=== PATIENT | male | born 1945 | race Caucasian/White ===

== ENCOUNTER 2019-08-27 12:29 | Day surgery (SDC) | payer OTHER, SELFPAY ==
[2019-08-27 13:13] VITALS: BMI 26.6
[2019-08-27] MEDS: SODIUM CHLORIDE 0.9% 1,000 ML 200 ML IV (13:18)
--- NOTE | 2019-08-27 13:19 | PM.HP.1 ---
History of Present Illness History of Present Illness Date Patient Seen: 08/27/19 Time Patient Seen: 13:19 Chief complaint: [id number] SCREENING COLONOSCOPY Narrative: Asymptomatic patient here for screening colonoscopy he has had a previous colonoscopy with no polyps Patient History Family & Social History Social History: household members spouse Meds Home Medications and Allergies Home Medications Medication Instructions Recorded Confirmed Type atorvastatin 10 mg PO BEDTIME 08/27/19 08/27/19 History colchicine 0.6 mg PO DAILY 08/27/19 08/27/19 History lisinopril 40 mg PO DAILY 08/27/19 08/27/19 History Allergies Allergy/AdvReac Type Severity Reaction Status Date / Time No Known Drug Allergies Allergy Verified 08/27/19 13:18 Review of Systems Review of Systems ROS Unobtainable: All systems reviewed & are unremarkable except as noted in HPI and below Exam Narrative Exam Narrative: Patient is resting comfortably in bed alert and oriented Lungs clear with no rales or wheezes Heart regular rhythm no murmur Abdomen soft no organomegaly no tenderness Rectal be done at colonoscopy Assessment & Plan Assessment & Plan narrative: Patient here for screening colonoscopy no history of polyps. He has no questions about the procedure.
[2019-08-27] MEDS: MIDAZOLAM 5 MG/5 ML VIAL IV (13:26)
[2019-08-27] MEDS: fentaNYL 250 MCG/5 ML INJ IV (13:27)
--- NOTE | 2019-08-27 13:41 | PM.OP.ENDO ---
Operative Date/Time/Diagnoses Date of procedure: 08/27/19 Time of procedure: 13:41 Pre-op diagnosis: Screening colonoscopy Post-op diagnosis: same Procedure & Clinicians Study performed: Total colonoscopy to the cecum Same procedure as scheduled: Yes Surgeon: Clif Xiao Procedure Notes SCOAP/Timeout: Was done Procedure in detail: The patient was properly identified during surgical pause was given a total of 2 mg of Versed and 100 micro g of fentanyl and remained very comfortable throughout the procedure. The flexible fiberoptic colonoscope was inserted transanally to the cecum. Patient's colon is entirely normal. No polyps no tumors no diverticulosis is seen. Procedure was very well tolerated. Scope withdrawal time: 8 Sedation minutes: 15 Specimen(s): none sent Complications: none Post-procedure Recommendations: Colonscopy in 10 years Disposition: PACU
[2019-08-27 13:46] VITALS: BP 94/65; PULSE 74; RESP 13; TEMP 36.4; O2SAT 97
[2019-08-27 13:51] VITALS: BP 94/67; PULSE 81; RESP 23; O2SAT 96
[2019-08-27 13:56] VITALS: BP 96/67; PULSE 67; RESP 15; TEMP 36.4; O2SAT 98
[2019-08-27 14:01] VITALS: BP 94/67; PULSE 64; RESP 20; O2SAT 95
[2019-08-27 14:15] VITALS: BP 101/68; PULSE 66; RESP 17; TEMP 36.6; O2SAT 97
== END 2019-08-27 14:37 | disposition home or self-care (01) ==
PROVIDERS: Family Provider Family Medicine Geriatric Medicine; PCP Family Medicine Geriatric Medicine; Visit Provider Surgery
PROC: 0DJD8ZZ Inspection of Lower Intestinal Tract, Via Natural or Artificial Opening Endoscopic (ICD-10-PCS; CPT 45378; principal; 2019-08-27 13:45)
DX: Z12.11 Encounter for screening for malignant neoplasm of colon (principal)
CPT/HCPCS: 45378; 99152; J2250; J3010

== ENCOUNTER → 2021-03-09 09:54 | Outpatient (CLI) | payer MEDICARE, OTHER, SELFPAY ==
[2021-03-09 10:58] LABS: Alanine Aminotransferase 26 IU/L (<50); Albumin 4.3 g/dL (3.5-5.0); Albumin Globulin Ratio 1.7 (1.0-2.8); Alkaline Phosphatase 74 U/L (38-126); Aspartate Aminotransferase 32 IU/L (17-59); BUN Creatinine Ratio 17.7 (6-22); Bilirubin Total 0.9 mg/dL (0.2-1.3); Blood Urea Nitrogen 22 mg/dL (9-20); Calcium 9.9 mg/dL (8.4-10.2); Carbon Dioxide 24 mmol/L (22-32); Chloride 106 mmol/L (98-107); Cholesterol 192 mg/dL (140-199); Globulin 2.6 g/dL (1.7-4.1); Glucose 93 mg/dL (80-110); HDL Cholesterol 41 mg/dL (40-60); HEMOLYSIS < 15 (0-50); LDL Cholesterol Calculated 102 mg/dL (<100); Potassium 4.6 mmol/L (3.4-5.1); Sodium 138 mmol/L (137-145); Total Protein 6.9 g/dL (6.3-8.2); Triglycerides 246 mg/dL (35-150)
== END ==
PROVIDERS: Family Provider Family Medicine Geriatric Medicine; PCP Internal Medicine; Referring Provider Internal Medicine; Visit Provider Internal Medicine
DX: E78.5 Hyperlipidemia, unspecified (principal)
CPT/HCPCS: 36415; 80053; 80061

== ENCOUNTER 2021-11-13 15:34 | Observation (INO) | payer MEDICARE, OTHER, SELFPAY ==
[2021-11-13] VITALS (14 sets, daily range): BP systolic 143–167; BP diastolic 70–82; PULSE 58–75; RESP 16–27; TEMP 36.4–37.1; O2SAT 93–99; BMI 26.6
--- NOTE | 2021-11-13 15:40 | DI.RAD.S_ITS ---
PROCEDURE: XR CHEST 1V INDICATIONS: chest pain TECHNIQUE: One view of the chest was acquired. COMPARISON: None. FINDINGS: Surgical changes and devices: None. Lungs and pleura: Mild pulmonary vascular congestion is seen. No focal infiltrate. No pleural effusions or pneumothorax. Mediastinum: Mediastinal contours appear normal. Heart size is enlarged. Bones and chest wall: No suspicious bony lesions. Overlying soft tissues appear unremarkable. IMPRESSION: Mild congestion. No focal infiltrate, pleural effusion or pneumothorax. Dictated by: Gus Recinos M.D. on 11/13/2021 at 16:13 Approved by: Gus Rceinos M.D. on 11/13/2021 at 16:17
[2021-11-13 16:08] LABS: Add Manual Diff / Slide Review NO; Basophils Absolute Auto 0 /uL (0-100); Basophils Percent Auto 0.6 % (0-2); Eosinophils Absolute Auto 100 /uL (0-450); Eosinophils Percent Auto 1.3 % (2-4); Hematocrit 43.3 % (41-53); Lymphocytes Absolute Auto 2000 /uL (1100-4500); Lymphocytes Percent Auto 32.9 % (25-40); Mean Corpuscular HGB Conc 34.6 % (30-36); Mean Corpuscular Hemoglobin 32.1 PG (26-34); Mean Corpuscular Volume 92.7 fL (80-100); Monocytes Absolute Auto 400 /uL (0-900); Monocytes Percent Auto 6.8 % (3-14); Neutrophils Absolute Auto 3500 /uL (1500-7000); Neutrophils Percent Auto 58.4 % (50-75); Platelet Count 199 X10^3/uL (150-400); Red Blood Cell Count 4.67 X10^6/uL (4.5-5.9); Red Cell Distribution Width 12.1 % (11.6-14.8)
[2021-11-13 16:12] LABS: Prothrombin Time 10.8 SECONDS (10.1-12.7)
[2021-11-13 16:15] LABS: PTT Partial Thromboplastin Tim 32 SECONDS (26.4-36.2)
[2021-11-13 16:23] LABS: Alanine Aminotransferase 24 IU/L (<50); Albumin 4.5 g/dL (3.5-5.0); Albumin Globulin Ratio 1.6 (1.0-2.8); Alkaline Phosphatase 58 U/L (38-126); Aspartate Aminotransferase 29 IU/L (17-59); BUN Creatinine Ratio 17.5 (6-22); Bilirubin Total 0.7 mg/dL (0.2-1.3); Blood Urea Nitrogen 24 mg/dL (9-20); Calcium 9.5 mg/dL (8.4-10.2); Carbon Dioxide 29 mmol/L (22-32); Chloride 105 mmol/L (98-107); Creatine Kinase 82 U/L (55-170); Estimated Glomerular Filt Rate 50.8 mL/min (>60); Globulin 2.8 g/dL (1.7-4.1); Glucose 108 mg/dL (80-110); HEMOLYSIS < 15 (0-50); Lipase 163 U/L (23-300); Potassium 4.2 mmol/L (3.4-5.1); Sodium 140 mmol/L (137-145); Total Protein 7.3 g/dL (6.3-8.2)
[2021-11-13 16:31] LABS: NT-proBNP (BNP-Adult 18+) 176 pg/mL (<125)
[2021-11-13 16:34] LABS: Troponin I < 0.012 ng/mL (0.01-0.034)
[2021-11-13] MEDS: ASPIRIN 81 MG CHEW TAB 324 MG PO (18:11)
[2021-11-13 18:33] LABS: COVID19 -Nasal RAPID Negative (Negative)
[2021-11-13 19:47] LABS: Troponin I < 0.012 ng/mL (0.01-0.034)
--- NOTE | 2021-11-13 20:20 | ED_ITS ---
HPI - Chest Pain General Chief Complaint: Chest Pain Stated Complaint: Chest Pains, Time Seen by Provider: 11/13/21 18:07 Source: patient Mode of arrival: Ambulatory Limitations: no limitations History of Present Illness HPI narrative: Patient is a 76-year-old male. Here for evaluation of left-sided chest pain. H e states that earlier today he was walking with his . This is not unusual. He states he walks quite a bit. Has never had chest pain before today. States he had 4 distinct episodes while he was walking of left-sided chest pain. Described as a sharp pain. Not made worse with palpation or movement. Did improve when he stopped. He was able to complete his walk. Has been asymptomatic since then. He did have a stress test back in 1998 but nothing since then. Does have a history of high blood pressure and high cholesterol and takes medications for this. Related Data Home Medications Medication Instructions Recorded Confirmed atorvastatin 10 mg tablet 5 mg PO BEDTIME 08/27/19 11/13/21 lisinopril 40 mg tablet 20 mg PO DAILY 08/27/19 11/13/21 Allergies Allergy/AdvReac Type Severity Reaction Status Date / Time No Known Drug Allergies Allergy Verified 08/27/19 13:18 Review of Systems Review of Systems ROS Unobtainable: All systems reviewed & are unremarkable except as noted in HPI and below Constitutional Constitutional: Denies fever(s) Cardiovascular Cardiovascular: Reports as per HPI, Reports system reviewed and no additional complaints, except as documented and Denies dyspnea Respiratory Respiratory: Denies cough and Denies dyspnea Gastrointestinal Gastrointestinal: Denies abdominal pain, Denies nausea and Denies vomiting Genitourinary Genitourinary: Reports system reviewed and no additional complaints, except as documented Integumentary/Breasts Skin/Breast: Reports system reviewed and no additional complaints, except as documented Neurologic Neurologic: Reports system reviewed and no additional complaints, except as documented Hematologic/Lymphatic On Anticoagulants: No Patient History Medical History Essential hypertension GERD (gastroesophageal reflux disease) Hyperlipidemia Hyperuricemia Social History household members: spouse Smoking Status: Former smoker alcohol intake: current Exam Initial Vital Signs Initial Vital Signs: Vital Signs Temperature 98.7 F 11/13/21 15:38 Pulse Rate 75 11/13/21 15:38 Respiratory Rate 22 11/13/21 15:38 Blood Pressure 167/77 H 11/13/21 15:38 Pulse Oximetry 99 11/13/21 15:38 HENMT Head: normal to inspection and normocephalic Chest Chest: normal inspection of the chest, No crepitus and No tenderness Resp Effort & Inspection: normal respiratory effort Auscultation: clear to auscultation bilaterally Cardio Rate: regular rate Rhythm: regular rhythm GI Inspection: normal to inspection Palpation: soft, No firm and No tender Skin General: no rashes or lesions noted Neuro General: patient alert, patient awake, patient oriented x3 and moves all extremities Speech: speech normal Gait: normal gait Extrem General: normal to inspection and capillary refill normal Psych Appearance: grossly normal and well kempt Scores GCS Chante coma scale eye opening: Spontaneous Chante coma scale verbal response: Orientated Aline coma scale motor response: Obey commands Aline coma scale total score: 15 HEART Score Heart Score history: Moderately Suspicious Heart Score EKG: Non-Specific repolarization disturbance Heart Score Age: > or = 65 years old Heart Score risk factors: 1-2 risk factors Heart Score troponin: < or = to normal limit Heart Score Total: 5 Course Orders Ordered: ED Orders 11/13/21 15:45 Complete Blood Count AUTO DIFF Stat Comprehensive Metabolic Panel Stat Lipase Stat Magnesium Stat NT-proBNP (BNP-Adult 18+) Stat Partial Thromboplastin Time Stat Prothrombin Time INR Stat Troponin & CK Cardiac Panel Stat EKG-12 Lead Stat 11/13/21 17:50 EKG-12 Lead Stat 11/13/21 18:00 COVID19 -Nasal swab/Pre-Proc Stat 11/13/21 19:10 Trop I [Troponin I] Stat Acetaminophen (Acetaminophen 325 Mg Tablet) 650 mg PO Q6HR PRN PRN Reason: Fever/Mild Pain (1-3) Aspirin (Aspirin Ec 81 Mg Tablet) 81 mg PO DAILY [facility] Atorvastatin Calcium (Atorvastatin 20 Mg Tablet) 40 mg PO BEDTIME [facility] Enoxaparin Sodium (Enoxaparin 40 Mg/0.4 Ml Syringe) 40 mg SUBCUT DAILY [facility] Losartan Potassium (Losartan 25 Mg Tablet) 25 mg PO DAILY [facility] Morphine Sulfate (Morphine 2 Mg/Ml Inj) 2 mg IV Q5MIN PRN PRN Reason: Chest Pain Morphine Sulfate (Morphine 2 Mg/Ml Inj) 2 mg IV Q4H PRN PRN Reason: Breakthrough pain only (8-10) Naloxone HCl (Naloxone 0.4 Mg/Ml Vial) 0.2 mg IV Q2MIN PRN PRN Reason: Opiate Reversal Nitroglycerin (Nitroglycerin 0.4 Mg Sl Tab) 0.4 mg SL [id number] PRN PRN Reason: Chest Pain Ondansetron HCl (Ondansetron 4 Mg/2 Ml Inj) 4 mg IV Q8HR PRN PRN Reason: Nausea And Vomiting Discontinued Medications Aspirin (Aspirin 81 Mg Chew Tab) 324 mg PO NOW ONE Stop: 11/13/21 15:41 Last Admin: 11/13/21 18:11 Dose: 324 mg Documented by: DOMENIC Nitroglycerin (Nitroglycerin 0.4 Mg Sl Tab) 0.4 mg SL [id number] PRN PRN Reason: Chest Pain Vital Signs Vital signs: Vital Signs - 8 hr 11/13/21 17:40 11/13/21 17:41 11/13/21 17:56 Temperature 97.6 F Pulse Rate 62 64 Respiratory Rate 25 H 24 Blood Pressure 162/77 H Pulse Oximetry 11/13/21 18:00 11/13/21 18:30 11/13/21 19:00 Temperature Pulse Rate 75 62 62 Respiratory Rate 24 24 22 Blood Pressure 143/81 H Pulse Oximetry 97 99 99 11/13/21 19:30 11/13/21 19:51 11/13/21 20:00 Temperature Pulse Rate 60 61 60 Respiratory Rate 24 27 H 25 H Blood Pressure 157/70 H Pulse Oximetry 99 93 99 11/13/21 20:01 11/13/21 20:30 11/13/21 21:00 Temperature Pulse Rate 62 61 58 L Respiratory Rate 24 23 23 Blood Pressure 154/82 H 160/77 H 162/78 H Pulse Oximetry 98 98 98 MDM - Chest Pain Lab Data Attestation: I reviewed the patient's lab results. Result diagrams: 11/13/21 15:45 11/13/21 15:45 Labs: Lab Results 11/13/21 11/13/21 11/13/21 Range/Units 15:35 15:45 15:45 WBC 6.0 (4.5-11.0) X10^3/uL RBC 4.67 (4.5-5.9) X10^6/uL Hgb 15.0 (13.5-17.5) g/dL Hct 43.3 (41-53) % MCV 92.7 (80-100) fL MCH 32.1 (26-34) PG MCHC 34.6 (30-36) % RDW 12.1 (11.6-14.8) % Plt Count 199 (150-400) X10^3/uL Neut % (Auto) 58.4 (50-75) % Lymph % (Auto) 32.9 (25-40) % [place] % (Auto) 6.8 (3-14) % Eos % (Auto) 1.3 L (2-4) % Baso % (Auto) 0.6 (0-2) % Neut # (Auto) 3500 (5004-7252) /uL Lymph # (Auto) 2000 (5722-5504) /uL [place] # (Auto) 400 (0-900) /uL Eos # (Auto) 100 (0-450) /uL Baso # (Auto) 0 (0-100) /uL PT (10.1-12.7) SECONDS INR (0.9-1.3) APTT (26.4-36.2) SECONDS Sodium 140 (137-145) mmol/L Potassium 4.2 (3.4-5.1) mmol/L Chloride 105 (98-107) mmol/L Carbon Dioxide 29 (22-32) mmol/L BUN 24 H (9-20) mg/dL Creatinine 1.37 H (0.66-1.25) mg/dL Estimated GFR 50.8 L (>60) mL/min BUN/Creatinine Ratio 17.5 (6-22) Glucose 108 (80-110) mg/dL Hemoglobin A1c (4.0-6.0) % Calcium 9.5 (8.4-10.2) mg/dL Magnesium 2.0 (1.6-2.3) mg/dL Total Bilirubin 0.7 (0.2-1.3) mg/dL AST 29 (17-59) IU/L ALT 24 (<50) IU/L Alkaline Phosphatase 58 (38-126) U/L Total Creatine Kinase 82 (55-170) U/L CK-MB (CK-2) TNP CK-MB (CK-2) Rel Index TNP Troponin I < 0.012 (0.01-0.034) ng/mL NT-Pro-B Natriuret Pep (<125) pg/mL Total Protein 7.3 (6.3-8.2) g/dL Albumin 4.5 (3.5-5.0) g/dL Globulin 2.8 (1.7-4.1) g/dL Albumin/Globulin Ratio 1.6 (1.0-2.8) Lipase 163 (23-300) U/L TSH 1.20 (0.47-4.68) uIU/mL SARS-CoV-2 (PCR) (Negative) 11/13/21 11/13/21 11/13/21 Range/Units 15:45 15:45 15:45 WBC (4.5-11.0) X10^3/uL RBC (4.5-5.9) X10^6/uL Hgb (13.5-17.5) g/dL Hct (41-53) % MCV (80-100) fL MCH (26-34) PG MCHC (30-36) % RDW (11.6-14.8) % Plt Count (150-400) X10^3/uL Neut % (Auto) (50-75) % Lymph % (Auto) (25-40) % [place] % (Auto) (3-14) % Eos % (Auto) (2-4) % Baso % (Auto) (0-2) % Neut # (Auto) (0507-9764) /uL Lymph # (Auto) (5409-1636) /uL [place] # (Auto) (0-900) /uL Eos # (Auto) (0-450) /uL Baso # (Auto) (0-100) /uL PT 10.8 (10.1-12.7) SECONDS INR 1.0 (0.9-1.3) APTT 32 (26.4-36.2) SECONDS Sodium (137-145) mmol/L Potassium (3.4-5.1) mmol/L Chloride (98-107) mmol/L Carbon Dioxide (22-32) mmol/L BUN (9-20) mg/dL Creatinine (0.66-1.25) mg/dL Estimated GFR (>60) mL/min BUN/Creatinine Ratio (6-22) Glucose (80-110) mg/dL Hemoglobin A1c 5.1 (4.0-6.0) % Calcium (8.4-10.2) mg/dL Magnesium (1.6-2.3) mg/dL Total Bilirubin (0.2-1.3) mg/dL AST (17-59) IU/L ALT (<50) IU/L Alkaline Phosphatase (38-126) U/L Total Creatine Kinase (55-170) U/L CK-MB (CK-2) CK-MB (CK-2) Rel Index Troponin I (0.01-0.034) ng/mL NT-Pro-B Natriuret Pep 176 H (<125) pg/mL Total Protein (6.3-8.2) g/dL Albumin (3.5-5.0) g/dL Globulin (1.7-4.1) g/dL Albumin/Globulin Ratio (1.0-2.8) Lipase (23-300) U/L TSH (0.47-4.68) uIU/mL SARS-CoV-2 (PCR) (Negative) 11/13/21 11/13/21 Range/Units 18:00 19:10 WBC (4.5-11.0) X10^3/uL RBC (4.5-5.9) X10^6/uL Hgb (13.5-17.5) g/dL Hct (41-53) % MCV (80-100) fL MCH (26-34) PG MCHC (30-36) % RDW (11.6-14.8) % Plt Count (150-400) X10^3/uL Neut % (Auto) (50-75) % Lymph % (Auto) (25-40) % [place] % (Auto) (3-14) % Eos % (Auto) (2-4) % Baso % (Auto) (0-2) % Neut # (Auto) (0084-7566) /uL Lymph # (Auto) (1629-0670) /uL [place] # (Auto) (0-900) /uL Eos # (Auto) (0-450) /uL Baso # (Auto) (0-100) /uL PT (10.1-12.7) SECONDS INR (0.9-1.3) APTT (26.4-36.2) SECONDS Sodium (137-145) mmol/L Potassium (3.4-5.1) mmol/L Chloride (98-107) mmol/L Carbon Dioxide (22-32) mmol/L BUN (9-20) mg/dL Creatinine (0.66-1.25) mg/dL Estimated GFR (>60) mL/min BUN/Creatinine Ratio (6-22) Glucose (80-110) mg/dL Hemoglobin A1c (4.0-6.0) % Calcium (8.4-10.2) mg/dL Magnesium (1.6-2.3) mg/dL Total Bilirubin (0.2-1.3) mg/dL AST (17-59) IU/L ALT (<50) IU/L Alkaline Phosphatase (38-126) U/L Total Creatine Kinase (55-170) U/L CK-MB (CK-2) CK-MB (CK-2) Rel Index Troponin I < 0.012 (0.01-0.034) ng/mL NT-Pro-B Natriuret Pep (<125) pg/mL Total Protein (6.3-8.2) g/dL Albumin (3.5-5.0) g/dL Globulin (1.7-4.1) g/dL Albumin/Globulin Ratio (1.0-2.8) Lipase (23-300) U/L TSH (0.47-4.68) uIU/mL SARS-CoV-2 (PCR) Negative (Negative) Imaging Data Chest x-ray: Radiologist's Impression: [address] [address] XRay Report Signed Patient: Jordan Kamara MR#: [id number] : 1945 Acct:[id number] Age/Sex: 76 / M Date of Service: 11/13/21 Loc: ED Accession Number: [id number] ?? Procedure: XR chest 1V Ordering Provider: Meredith Dubose D.O. PROCEDURE:? XR CHEST 1V ? INDICATIONS:? chest pain ? TECHNIQUE:? One view of the chest was acquired.? ? COMPARISON:? None. ? FINDINGS:? ? Surgical changes and devices:? None.? ? Lungs and pleura:? Mild pulmonary vascular congestion is seen.? No focal infiltrate.? No pleural effusions or pneumothorax.? ? Mediastinum:? Mediastinal contours appear normal.? Heart size is enlarged.? ? Bones and chest wall:? No suspicious bony lesions.? Overlying soft tissues appear unremarkable.? ? IMPRESSION:? Mild congestion.? No focal infiltrate, pleural effusion or pneumothorax. ? ? Dictated by: Gus Recinos M.D. on 11/13/2021 at 16:13 ? ? Approved by: Gus Recinos M.D. on 11/13/2021 at 16:17?? ECG Data Attestation: I personally reviewed and interpreted this ECG as follows: Prior ECG tracings: available for review Interpretation: Presentation EKG Sinus rhythm Ventricular rate is 74 Left bundle branch block QRS 154 milliseconds Normal QTC No ST T wave changes Repeat EKG Sinus rhythm Ventricular rate of 74 Unchanged from presentation EKG Previous EKG dated 19 June 2018 Sinus rhythm Left bundle branch block Similar to EKGs today MDM Narrative Medical decision making narrative: Patient has a left bundle branch block on his EKG but this is consistent with an EKG from June of 2018. Patient knew that he had a left bundle branch block. Had left-sided chest discomfort that occurred with exertion today. Has not had risk stratification since 1998. Has a heart score 5. Patient is leaving on a cruise in 10 days from now and would like to be admitted for further risk stratification of his chest discomfort. Patient was given an aspirin. Has been asymptomatic. Discussed the case with WILFRED Clark the [facility] provider who will admit for further evaluation and treatment. Discharge Plan Departure Patient Disposition: Admitted as Observation Clinical Impression: Chest pain Admit Date/Time: 11/13/21 21:10 Admit Provider: Amy Clark
--- NOTE | 2021-11-13 22:17 | DI.NM.S_ITS ---
PROCEDURE: NM COLTEN PERF SPECT R&S PHARM Rest and pharmacological stress myocardial perfusion SPECT with gated imaging and ejection fraction RADIOPHARMACEUTICAL: 12.2 mCi Tc-99m tetrafosmin IV at rest and 25.6 mCi Tc-99m tetrafosmin IV at peak effect of pharmacological stress. [id number] was performed. INDICATIONS: chest pain TECHNIQUE: Radiopharmaceutical was injected at peak stress test, and also at rest. SPECT images were obtained. SPECT myocardial perfusion images were displayed in short axis, horizontal long axis, and vertical long axis views. Gated images were reviewed using [employer] software. COMPARISON: None. CARDIAC STRESS: A pharmacologic stress test was performed under the supervision of an attending staff, using an infusion of lexiscan 0.4mg IV X1. Hemodynamic data: There is normal blood pressure and heart rate response to pharmacologic stress. Symptoms: The patient denied anginal chest pain. Aminophylline: none EKG: ECG non-diagnostic due to baseline LBBB; no ectopy. FINDINGS: Raw data: There is good myocardial uptake of radiotracer. No significant motion artifacts. Sbek-bj-gxyjy ratio is 0.31 (normal is less than 0.38 for tetrafosmin tracer). Left ventricle function: Gated images demonstrate normal left ventricular wall thickening. No segmental wall motion abnormalities. No transient ischemic dilation; TID is 0.84 (normal less than 1.3). Left ventricle resting end diastolic volume is 80 mL. Left ventricle stress ejection fraction is 70%; normal range is above 45%. Myocardial perfusion: There is a fixed inferior wall defect that resolves with prone imaging, suggesting diaphragmatic attenuation artifact rather than prior infarct. No ischemia. IMPRESSION: Low risk, probably normal pharmaceutical nuclear stress test 1) No perfusion evidence of ischemia or infarction. There is a fixed inferior wall defect that resolves with prone imaging, suggesting diaphragmatic attenuation artifact. 2) Normal left ventricular size, wall motion, and systolic function (EF 75% post stress). 3) ECG non-diagnostic due to baseline LBBB. 4) No angina during the study. 5) No prior nuclear stress test available for comparison. Findings discussed with Dr. Iraheta at 1650 on 11/15/2021 Dictated by: Fátima Oreilly MD on 11/15/2021 at 16:47 Approved by: Fátima Oreilly MD on 11/15/2021 at 16:51
--- NOTE | 2021-11-13 22:17 | DI.ECHO.S_ITS ---
[facility] +---------+ : : [address] : : : : [id number] : : : : Phone: [phone] Echocardiogram Report + + :Name: MEAGHAN HUNTER Study Date: 11/14/2021 Height: 66 in : :[facility] ReadingLocation: Weight: 165 lb : : Gender: Male BSA: 1.8 m2 : :: 1945 Age: 76 yrs BP: 127/73 mmHg: :Reason For Study: CHEST PAIN : :Ordering Physician: Marcia SCHOFIELDformed By: Shey Macias : :Referring: NOMAN SCHOFIELD : + + Interpretation Summary The left ventricle is normal in size and wall thickness. The ejection fraction is estimated to be 55-60%. Spetal motion suggestive of condunction abnormality. The right ventricle is normal in size and function. The IVC is of normal diameter and collapses greater than 50% with a sniff. This suggests a low right atrial pressure of 3 mm Hg. Mild aortic insufficiency. Mild tricuspid regurgitation Mild pulmonic regurgitation. Procedure: A two-dimensional transthoracic echocardiogram with color flow and Doppler was performed. The study quality was technically adequate. There is no prior echocardiogram noted for this patient. The patient was in sinus rhythm with heart rates between 61-71 bpm during the exam. Left Ventricle: The left ventricle is normal in size and wall thickness. The ejection fraction is estimated to be 55-60%. There are no focal wall motion abnormalities. Septal motion is consistent with conduction abnormality. Diastolic parameters suggest probable normal left ventricular diastolic function and normal filling pressures. Right Ventricle: The right ventricle is normal in size and function. Atria: The left atrial size is normal. Right atrial size is normal. There is no Doppler evidence for an interatrial shunt. Mitral Valve: The mitral valve is normal in structure and function. There is trace mitral regurgitation. Aortic Valve: The aortic valve is trileaflet. The aortic valve opens well. 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 There is no aortic valve stenosis. There is mild aortic regurgitation. Tricuspid Valve: The tricuspid valve is normal in structure and function. There is mild tricuspid regurgitation. Pulmonic Valve: The pulmonic valve leaflets are thin and pliable; valve motion is normal. There is mild pulmonic regurgitation. Great Vessels: The aortic root is mildly dilated. The ascending aorta is mild-moderately enlarged. The IVC is of normal diameter and collapses greater than 50% with a sniff. This suggests a low right atrial pressure of 3 mm Hg. Pericardium/ Pleura There is no pericardial effusion. There is no pleural effusion. MMode/2D Measurements & Calculations LVIDd: 4.4 cm LVOT diam: 2.1 cm LVIDs: 3.3 cm Ao root diam: 4.1 cm FS: 26.2 % asc Aorta Diam: 3.9 cm IVSd: 1.0 cm Ao Arch Diam (Prox Trans): 3.4 cm LVPWd: 1.0 cm LV corona. diameter/BSA (cm/m^2): 2.4 LV sys. diameter/BSA (cm/m^2): 1.8 LA A2 area: 22.5 cm2 RA long axis: 4.9 cm LA A4 area: 15.5 cm2 RA area: 15.1 cm2 LA length (vol): 5.6 cm RA vol: 39.6 ml LA vol: 53.1 ml RA : 21.5 ml/m2 LA vol index: 28.8 ml/m2 IVC diam: 1.8 cm RVD1 (basal): 3.3 cm RVD2 (mid): 3.3 cm TAPSE: 2.0 cm Doppler Measurements & Calculations Ao V2 max: 124.1 cm/sec LVOT Max Kevin: 106.2 cm/sec Ao V2 mean: 85.9 cm/sec LV V1 max P.5 mmHg Ao max P.2 mmHg LV V1 VTI: 25.2 cm Ao mean P.2 mmHg ESTELLA(I,D): 3.4 cm2 Ao V2 VTI: 26.5 cm ESTELLA(V,D): 3.0 cm2 sev ratio: 0.95 ESTELLA indexed to BSA (cm^2/m^2): 1.8 MV E max kevin: 50.1 cm/sec TR max kevin: 237.2 cm/sec MV A max kevin: 72.2 cm/sec TR max P.5 mmHg MV E/A: 0.69 PA V2 max: 102.6 cm/sec Med Peak E' Kevin: 5.1 cm/sec PA V2 mean: 63.7 cm/sec E/E' med: 9.8 PA mean P.9 mmHg Lat Peak E' Kevin: 8.5 cm/sec PA pr(Accel): 36.2 mmHg E/E' lat: 5.9 E/e' average: 7.8 MV dec time: 0.35 sec SV(LVOT): 89.5 ml Reading Physician:PRINCE
--- NOTE | 2021-11-13 23:16 | PM.HP.1 ---
History of Present Illness History of Present Illness Date Patient Seen: 11/13/21 Time Patient Seen: 23:16 Chief complaint: Chest Pain Narrative: Jordan Kamara is a 76-year-old male who presented to the emergency department after experiencing 4 episodes of chest pressure and pain while walking on a local walking trail on November 13. The patient is active and apparently walks 50-100 miles a month. He has had a history of having undergone a stress after a left bundle branch block was seen on routine EKG. He does state that he has had some left-sided arm pain as well. His pain is reproducible upon deep palpation of his chest, it worsens. He denies shortness of breath, nausea or vomiting, abdominal pain, dysuria, diarrhea or constipation. He does endorse having gout in in the toes of both of his feet. In the last day or so he did have some gastric upset after having eaten armstrong chops that they made at home without trimming off the fat. His family history is notable for his father having of a myocardial infarction at the age of 57. Chest x-ray ordered in the emergency department indicated mild pulmonary vascular congestion, no focal infiltrate pleural effusion or pneumothorax. Patient is afebrile, blood pressure 156/79, heart rate 68, respiratory rate 16, oxygen saturation 98% on room air, he weighs 74.8 kg with a BMI of 26.6. CBC is unremarkable, creatinine is 1.37 which is new, his EGFR is 50.8, hemoglobin A1c 5.1, magnesium 2.0, liver enzymes within normal limits, proBNP is 176 slightly over normal, and COVID-19 PCR is negative. Patient History Medical History (Updated 11/14/21 @ 03:01 by ANTONIO Rowan) Benign tumor of pituitary gland Essential hypertension GERD (gastroesophageal reflux disease) Hyperlipidemia Hyperuricemia Tic disorder Family & Social History Family History (Updated 11/14/21 @ 02:58 by ANTONIO Rowan) Father Hypertension Mother CVA (cerebral vascular accident) Sister Breast cancer Malignant melanoma Brother Diabetes mellitus Other Myocardial infarction Social History: household members spouse Prior Living Arrangements House Safety & Behavioral: Feels Safe in Current Yes Environment Been Physically Hurt or Yes Threatened By a Person Suicidal Ideation Description None Suicide Plan Description No Plan Tobacco & Substance use: Tobacco type cigarettes Smoking Status Former smoker Smoking packs per day 2, 24 year pack history alcohol intake current alcohol intake frequency a few times a week Meds Home Medications and Allergies Home Medications Medication Instructions Recorded Confirmed Type atorvastatin 10 mg tablet 5 mg PO BEDTIME 08/27/19 11/13/21 History lisinopril 40 mg tablet 20 mg PO DAILY 08/27/19 11/13/21 History Allergies Allergy/AdvReac Type Severity Reaction Status Date / Time No Known Drug Allergies Allergy Verified 08/27/19 13:18 Review of Systems Review of Systems ROS: Yes All systems reviewed with the patient and are negative except as otherwise documented Exam Vital Signs (past 8 hours): - 11/13/21 15:38 11/13/21 17:40 11/13/21 17:41 Temperature 98.7 F Pulse Rate 75 62 64 Respiratory Rate 22 25 H 24 Blood Pressure 167/77 H 162/77 H Pulse Oximetry 99 11/13/21 17:56 11/13/21 18:00 11/13/21 18:30 Temperature 97.6 F Pulse Rate 75 62 Respiratory Rate 24 24 Blood Pressure 143/81 H Pulse Oximetry 97 99 11/13/21 19:00 11/13/21 19:30 11/13/21 19:51 Temperature Pulse Rate 62 60 61 Respiratory Rate 22 24 27 H Blood Pressure 157/70 H Pulse Oximetry 99 99 93 11/13/21 20:00 11/13/21 20:01 11/13/21 20:30 Temperature Pulse Rate 60 62 61 Respiratory Rate 25 H 24 23 Blood Pressure 154/82 H 160/77 H Pulse Oximetry 99 98 98 11/13/21 21:00 11/13/21 21:46 Temperature Pulse Rate 58 L 68 Respiratory Rate 23 16 Blood Pressure 162/78 H 156/79 H Pulse Oximetry 98 98 Oxygen Delivery Method Room Air Narrative Exam Narrative: Gen: Alert, oriented, well-developed 76y.o. male, NAD HEENT: normocephalic, atraumatic, conjunctiva clear, sclera non-icteric, oral mucosa pink and moist Neck: supple, full ROM, no JVD, trachea is midline Resp: Lungs CTA, non-labored breathing CV: RRR, no murmur or rubs Abd: soft, non-tender, normoactive BTs Skin: no lesions or rashes, dry and intact Neuro: Persistent tic of the left eye, alert and oriented X 4 w/no focal deficits. Speech clear and coherent. Extremities: moves all 4 extremities, is ambulatory, negative Zeny?s sign Psyche: normal mood and affect. Objective Labs Result Diagrams: 11/13/21 15:45 11/13/21 15:45 Labs: Laboratory Results - last 24 hr 11/13/21 11/13/21 11/13/21 15:35 15:45 15:45 WBC 6.0 RBC 4.67 Hgb 15.0 Hct 43.3 MCV 92.7 MCH 32.1 MCHC 34.6 RDW 12.1 Plt Count 199 Neut % (Auto) 58.4 Lymph % (Auto) 32.9 [place]olls % (Auto) 6.8 Eos % (Auto) 1.3 L Baso % (Auto) 0.6 Neut # (Auto) 3500 Lymph # (Auto) 2000 [place] # (Auto) 400 Eos # (Auto) 100 Baso # (Auto) 0 PT INR APTT Sodium 140 Potassium 4.2 Chloride 105 Carbon Dioxide 29 BUN 24 H Creatinine 1.37 H Estimated GFR 50.8 L BUN/Creatinine Ratio 17.5 Glucose 108 Calcium 9.5 Magnesium 2.0 Total Bilirubin 0.7 AST 29 ALT 24 Alkaline Phosphatase 58 Total Creatine Kinase 82 CK-MB (CK-2) TNP CK-MB (CK-2) Rel Index TNP Troponin I < 0.012 NT-Pro-B Natriuret Pep Total Protein 7.3 Albumin 4.5 Globulin 2.8 Albumin/Globulin Ratio 1.6 Lipase 163 TSH 1.20 SARS-CoV-2 (PCR) 11/13/21 11/13/21 11/13/21 15:45 15:45 18:00 WBC RBC Hgb Hct MCV MCH MCHC RDW Plt Count Neut % (Auto) Lymph % (Auto) [place] % (Auto) Eos % (Auto) Baso % (Auto) Neut # (Auto) Lymph # (Auto) [place] # (Auto) Eos # (Auto) Baso # (Auto) PT 10.8 INR 1.0 APTT 32 Sodium Potassium Chloride Carbon Dioxide BUN Creatinine Estimated GFR BUN/Creatinine Ratio Glucose Calcium Magnesium Total Bilirubin AST ALT Alkaline Phosphatase Total Creatine Kinase CK-MB (CK-2) CK-MB (CK-2) Rel Index Troponin I NT-Pro-B Natriuret Pep 176 H Total Protein Albumin Globulin Albumin/Globulin Ratio Lipase TSH SARS-CoV-2 (PCR) Negative 11/13/21 19:10 WBC RBC Hgb Hct MCV MCH MCHC RDW Plt Count Neut % (Auto) Lymph % (Auto) [place] % (Auto) Eos % (Auto) Baso % (Auto) Neut # (Auto) Lymph # (Auto) [place] # (Auto) Eos # (Auto) Baso # (Auto) PT INR APTT Sodium Potassium Chloride Carbon Dioxide BUN Creatinine Estimated GFR BUN/Creatinine Ratio Glucose Calcium Magnesium Total Bilirubin AST ALT Alkaline Phosphatase Total Creatine Kinase CK-MB (CK-2) CK-MB (CK-2) Rel Index Troponin I < 0.012 NT-Pro-B Natriuret Pep Total Protein Albumin Globulin Albumin/Globulin Ratio Lipase TSH SARS-CoV-2 (PCR) Assessment & Plan Assessment & Plan narrative: Jordan Kamara is placed into observation further evaluation and workup of chest pain 1. Chest pain r/o ACS, acute, present on admission ? Echo in am ? Pharmacological stress test ? Start ASA 81 mg ? EKG shows left bundle ? Trend troponin X 3, all normal 2. Hypertension, chronic ? Start losartan 25 mg po daily ? May need to choose a different blood pressure agent if his renal function continues to be elevated. ? Beta kelechi may not be indicated as patient has a baseline low heart rate 3. HLD ? Lipid panel, pending ? increase atorvastatin to 40 mg po at bedtime Risk stratification ? Fasting lipid panel scheduled for 0500 labs ? A1c 5.1% not diabetic VTE Prophylaxis: Wells risk score 0 Enoxaparin 40 mg subQ once daily Bilateral SCDs Patient is placed into observation as his stay is not expected to exceed 2 midnights. FEN: IV fluids: saline lock, diet: heart healthy, labs: CBC, C/BMP, liver enzymes, Mag Consultants None Dispo: probable discharge to home Code status: Full code as discussed with the patient who identifies his , Akosua as his surrogate and POA. [X] I have utilized all available immediate resources to obtain, update, or review of the patient's current medications COVID-19 COVID-19 status: Negative Result date/Date tested (Pos, Neg/Pending): 11/13/21 Scores Wells' Criteria for PE Clinical signs and symptoms of DVT: No PE is #1 Dx or equally likely: No Heart rate > 100: No Immobilization at least 3 days or surg in previous 4 weeks: No History of PE or DVT: No Hemoptysis: No Malignancy w/Treatment within 6 months or palliative: No Wells' PE Score total: 0 Quality VTE Deep Vein Thrombosis/Pulmonary Embolism Present on Admission: No MIPS - Admit I confirm the patient?s Advance Care Plan is present, Code status is documented, Surrogate decision maker is in patient?s record [If Yes, STOP here]: Yes MIPS - DC The patient has current or prior documentation of left ventricular ejection fraction (LVEF) less than 40%, or moderate or severely depressed left ventricular systolic function.: No
[2021-11-13 23:21] LABS: Hemoglobin A1C% w Est Avg Glu 5.1 % (4.0-6.0)
--- NOTE | 2021-11-13 23:41 | PC.NURSE ---
2153 Pt to room 204 via w/c and able to transfer to bathroom and then to bed. Pt's Spouse will be rooming in (they live on [facility]. Pt denies pain, nausea, chest pain, or shortness of breath. Pt states when he pushes his upper left chest he is able to reproduce the pain and describes it as sharp. Oriented Pt and Spouse Akosua to room, call light, bed controls, and tv controls and a bed and snacks were set up for both. Pt denies needs at this time and agrees to call for assistance as needed.
[2021-11-14] VITALS (10 sets, daily range): BP systolic 106–131; BP diastolic 69–83; PULSE 59–96; RESP 16–22; TEMP 36–36.7; O2SAT 94–99
[2021-11-14 01:27] LABS: Troponin I < 0.012 ng/mL (0.01-0.034)
[2021-11-14 07:32] LABS: Add Manual Diff / Slide Review NO; Basophils Absolute Auto 0 /uL (0-100); Basophils Percent Auto 0.8 % (0-2); Eosinophils Absolute Auto 100 /uL (0-450); Eosinophils Percent Auto 1.5 % (2-4); Hemoglobin 14.8 g/dL (13.5-17.5); Lymphocytes Absolute Auto 1900 /uL (1100-4500); Lymphocytes Percent Auto 30.5 % (25-40); Mean Corpuscular HGB Conc 35.2 % (30-36); Mean Corpuscular Hemoglobin 32.3 PG (26-34); Mean Corpuscular Volume 91.8 fL (80-100); Monocytes Absolute Auto 500 /uL (0-900); Monocytes Percent Auto 8.3 % (3-14); Neutrophils Absolute Auto 3600 /uL (1500-7000); Neutrophils Percent Auto 58.9 % (50-75); Platelet Count 187 X10^3/uL (150-400); Red Blood Cell Count 4.58 X10^6/uL (4.5-5.9); Red Cell Distribution Width 12.2 % (11.6-14.8); White Blood Cell Count 6.2 X10^3/uL (4.5-11.0)
[2021-11-14 07:47] LABS: Alanine Aminotransferase 22 IU/L (<50); Albumin 4.1 g/dL (3.5-5.0); Albumin Globulin Ratio 1.6 (1.0-2.8); Alkaline Phosphatase 54 U/L (38-126); Aspartate Aminotransferase 27 IU/L (17-59); BUN Creatinine Ratio 19.2 (6-22); Bilirubin Total 0.9 mg/dL (0.2-1.3); Bilirubin Unconjugated 0.9 mg/dL (0.0-1.1); Blood Urea Nitrogen 23 mg/dL (9-20); Calcium 9.1 mg/dL (8.4-10.2); Carbon Dioxide 28 mmol/L (22-32); Chloride 105 mmol/L (98-107); Cholesterol 175 mg/dL (140-199); Estimated Glomerular Filt Rate 59.2 mL/min (>60); Globulin 2.6 g/dL (1.7-4.1); Glucose 95 mg/dL (80-110); HDL Cholesterol 34 mg/dL (40-60); HEMOLYSIS < 15 (0-50); LDL Cholesterol Calculated 82 mg/dL (<100); Magnesium 2.1 mg/dL (1.6-2.3); Potassium 4.2 mmol/L (3.4-5.1); Sodium 138 mmol/L (137-145); Total Protein 6.7 g/dL (6.3-8.2); Triglycerides 294 mg/dL (35-150)
[2021-11-14 07:56] LABS: Troponin I 0.012 ng/mL (0.01-0.034)
[2021-11-14] MEDS: ASPIRIN EC 81 MG TABLET PO (09:20)
[2021-11-14] MEDS: LOSARTAN 25 MG TABLET PO (09:20)
[2021-11-14] MEDS: ENOXAPARIN 40 MG/0.4 ML SYRINGE SUBCUT (09:24)
--- NOTE | 2021-11-14 09:26 | CM.DANOTE ---
DCP: Case received, EMR reviewed and met with patient. Spouse, Akosua Kamara, was also at bedside. Introduced self and role. Was able to obtain information regarding patient's baseline activity status prior to hospitalization. DCP assessment completed with information currently available. Patient is a 76 year old male who admitted yesterday evening to the care of the hospitalist team. PCP: Dr. Ramirez. Payer: confirmed: Medicare/[facility]. Patient came to the hospital via private vehicle secondary to having some chest pain. Patient had been walking with his spouse when he started developing left sided chest pressure. Patient is here for cardiac eval, including an echo, as well as stress test. Met with patient and spouse in the room. Both are pleasant. Patient is independent at his baseline, and resides in [place] with spouse, Akosua. They are avid walkers. They are planning on going on a cruise in the next week to the [facility]. P: DCP to continue to follow. Patient should be able to go home when he is deemed medically stable. Eleni Vazquez RN/Institutional Asset Manager Discharge Planning/Care Management Advanced directive, confirm from FAMILY Start: 11/13/21 22:45 Freq: Q24H Status: Active Protocol: Document 11/13/21 22:45 CM (Rec: 11/13/21 22:46 CM [id number]) Advance Directive, confirm on record Time 22:46 Person contacted Pt Copy received No CM Discharge Assessment Start: 11/14/21 08:41 Freq: Status: Active Protocol: Document 11/14/21 08:41 VM (Rec: 11/14/21 08:42 [id number]) Discharge Planning Assessment Assigned [id number] [employer]or Crewman Eleni Vazquez RN/Institutional Asset Manager Advance Directives? Yes Advance Directives on File No History Provided By Patient,Significant Other, Medical Record Prior Living Arrangements House Household Members spouse Independent with ADL's Yes Is patient alert and oriented? Yes Caregiver for Another No Barriers to Discharge No Discharge Plan Home Transportation Arrangement Spouse Referrals Initiated None needed Whiteboard Updated in Patient Room with Yes name and ext. # of M60A2 Armor Crewman Review Status In Process Next Review Type Continued Stay Review Document 11/14/21 08:56 VM (Rec: 11/14/21 08:57 [id number]) Discharge Planning Assessment Assigned M60A2 [employer]or Crewman Eleni Taylor, RN/Institutional Asset Manager Advance Directives? Yes Advance Directives on File No History Provided By Patient,Significant Other, Medical Record Prior Living Arrangements House Household Members spouse Type of transporation used prior to Drives own vehicle admit Independent with ADL's Yes Is patient alert and oriented? Yes Caregiver for Another No Barriers to Discharge No Discharge Plan Home Transportation Arrangement Spouse Referrals Initiated None needed Whiteboard Updated in Patient Room with Yes name and ext. # of M60A2 Armor Crewman Review Status In Process Next Review Type Continued Stay Review
[2021-11-14] MEDS: ACETAMINOPHEN 325 MG TABLET 650 MG PO (17:12)
--- NOTE | 2021-11-14 17:34 | PM.PN.1 ---
Subjective Subjective Date Patient Seen: 11/14/21 Interval history: The patient is a 76-year-old male with a history of hypertension hyperlipidemia presented to the hospital with a chief complaint of chest pain. Since arrival he has had no additional chest pain. The patient is awaiting nuclear medicine stress study. Unfortunately there was not enough isotope in his study will be deferred until tomorrow. Exam Vital Signs (past 8 hours): - 11/14/21 11:15 11/14/21 15:15 Temperature 96.8 F L 98.0 F Pulse Rate 96 H 63 Respiratory Rate 22 20 Blood Pressure 128/77 125/77 Pulse Oximetry 99 95 Oxygen Delivery Method Room Air Oxygen Flow Rate 0 Narrative Exam Narrative: Pleasant gentleman resting comfortably in no obvious distress Resp Other: Lungs clear to auscultation Cardio Other: Cardiac exam: Regular rate and rhythm normal S1-S2 GI Other: Abdomen: Soft nontender nondistended Extrem Other: Extremity no edema Objective Labs Result Diagrams: 11/14/21 07:20 11/14/21 07:20 Labs: Laboratory Results - last 24 hr 11/13/21 11/13/21 11/13/21 15:35 15:45 18:00 WBC RBC Hgb Hct MCV MCH MCHC RDW Plt Count Neut % (Auto) Lymph % (Auto) [place] % (Auto) Eos % (Auto) Baso % (Auto) Neut # (Auto) Lymph # (Auto) [place] # (Auto) Eos # (Auto) Baso # (Auto) Sodium Potassium Chloride Carbon Dioxide BUN Creatinine Estimated GFR BUN/Creatinine Ratio Glucose Hemoglobin A1c 5.1 Calcium Magnesium Total Bilirubin Conjugated Bilirubin Unconjugated Bilirubin AST ALT Alkaline Phosphatase Troponin I Total Protein Albumin Globulin Albumin/Globulin Ratio Triglycerides Cholesterol LDL Cholesterol, Calc HDL Cholesterol TSH 1.20 SARS-CoV-2 (PCR) Negative 11/13/21 11/14/21 11/14/21 19:10 00:55 07:20 WBC 6.2 RBC 4.58 Hgb 14.8 Hct 42.0 MCV 91.8 MCH 32.3 MCHC 35.2 RDW 12.2 Plt Count 187 Neut % (Auto) 58.9 Lymph % (Auto) 30.5 [place] % (Auto) 8.3 Eos % (Auto) 1.5 L Baso % (Auto) 0.8 Neut # (Auto) 3600 Lymph # (Auto) 1900 [place] # (Auto) 500 Eos # (Auto) 100 Baso # (Auto) 0 Sodium Potassium Chloride Carbon Dioxide BUN Creatinine Estimated GFR BUN/Creatinine Ratio Glucose Hemoglobin A1c Calcium Magnesium Total Bilirubin Conjugated Bilirubin Unconjugated Bilirubin AST ALT Alkaline Phosphatase Troponin I < 0.012 < 0.012 Total Protein Albumin Globulin Albumin/Globulin Ratio Triglycerides Cholesterol LDL Cholesterol, Calc HDL Cholesterol TSH SARS-CoV-2 (PCR) 11/14/21 07:20 WBC RBC Hgb Hct MCV MCH MCHC RDW Plt Count Neut % (Auto) Lymph % (Auto) [place] % (Auto) Eos % (Auto) Baso % (Auto) Neut # (Auto) Lymph # (Auto) [place] # (Auto) Eos # (Auto) Baso # (Auto) Sodium 138 Potassium 4.2 Chloride 105 Carbon Dioxide 28 BUN 23 H Creatinine 1.20 Estimated GFR 59.2 L BUN/Creatinine Ratio 19.2 Glucose 95 Hemoglobin A1c Calcium 9.1 Magnesium 2.1 Total Bilirubin 0.9 Conjugated Bilirubin 0.0 Unconjugated Bilirubin 0.9 AST 27 ALT 22 Alkaline Phosphatase 54 Troponin I 0.012 Total Protein 6.7 Albumin 4.1 Globulin 2.6 Albumin/Globulin Ratio 1.6 Triglycerides 294 H Cholesterol 175 LDL Cholesterol, Calc 82 HDL Cholesterol 34 L TSH SARS-CoV-2 (PCR) [facility] Medical History (Updated 11/14/21 @ 03:01 by ANTONIO Rowan) Benign tumor of pituitary gland Essential hypertension GERD (gastroesophageal reflux disease) Hyperlipidemia Hyperuricemia Tic disorder Family History (Updated 11/14/21 @ 02:58 by ANTONIO Rowan) Father Hypertension Mother CVA (cerebral vascular accident) Sister Breast cancer Malignant melanoma Brother Diabetes mellitus Other Myocardial infarction Social History household members: spouse Smoking Status: Former smoker alcohol intake: current Assessment & Plan Assessment & Plan narrative: Chest pain r/o ACS, acute, present on admission ? Echo: The left ventricle is normal in size and wall thickness. The ejection fraction is estimated to be 55-60%. Spetal motion suggestive of condunction abnormality. ? The right ventricle is normal in size and function. The IVC is of normal diameter and collapses greater than 50% with a sniff. This suggests a low right atrial pressure of 3 mm Hg. ? Mild aortic insufficiency. Mild tricuspid regurgitation Mild pulmonic regurgitation. ? Pharmacological stress test, in am ? Start ASA 81 mg ? EKG shows left bundle ? Trend troponin X 3, all normal 2. Hypertension, chronic ? Start losartan 25 mg po daily ? 3. HLD ? Lipid panel, pending ? increase atorvastatin to 40 mg po at bedtime Anticipate stress test in the morning. The Lexiscan is negative patient will be discharged subsequently. Time Spent With Patient Critical Care time: I spent a total of [] minutes of critical care time on this patient's care today; this time is exclusive of procedural time. Quality VTE Deep Vein Thrombosis/Pulmonary Embolism Present on Admission: No
[2021-11-14] MEDS: ATORVASTATIN 20 MG TABLET 40 MG PO (21:31)
[2021-11-15 04:44] VITALS: BP 128/69; PULSE 60; RESP 16; TEMP 37.3; O2SAT 98
[2021-11-15 07:00] VITALS: O2SAT 95
[2021-11-15 09:40] VITALS: O2SAT 95
[2021-11-15 09:41] VITALS: BP 123/71; PULSE 63
[2021-11-15] MEDS: ASPIRIN EC 81 MG TABLET PO (09:41)
[2021-11-15] MEDS: ENOXAPARIN 40 MG/0.4 ML SYRINGE SUBCUT (09:41)
[2021-11-15] MEDS: LOSARTAN 25 MG TABLET PO (09:41)
[2021-11-15 09:42] VITALS: BP 123/71; PULSE 63; RESP 15; TEMP 37.1; O2SAT 95
--- NOTE | 2021-11-15 10:54 | PC.NURSE ---
Addendum entered by Arpita Mcclellan R.N. 11/15/21 17:17: Patient given discharge instructions regarding f/u with PCP, new Rx, diet and activity. Patient and spouse verbalized understanding. IV discontinued, tele off. Patient and deny questions or concerns. Patient walked out with Aides assist. Addendum entered by Arpita Mcclellan R.N. 11/15/21 13:21: Patient currently off unit for second portion of test. Original Note: Patient A/Ox3, denies pain, chest pain, SOB, no edema noted. Patient off floor for first portion of stress test, awaiting second portion at this time. VSS. Tele remains on. Patient denies complications with voiding or bowels at this time. Morning medications administered. Patient remains saline locked at this time. Instructed to call if he becomes dizzy or lightheaded before getting OOB. Call light in reach. remains bedside.
[2021-11-15 14:03] VITALS: BP 135/78; PULSE 68; RESP 16; TEMP 36.6; O2SAT 96
[2021-11-15] MEDS: ACETAMINOPHEN 325 MG TABLET 650 MG PO (14:11)
--- NOTE | 2021-11-15 17:00 | P.DS_ITS ---
History of Present Illness History of Present Illness Date Patient Seen: 11/15/21 Time Patient Seen: 17:00 Chief complaint: Chest Pain Narrative: Jordan Kamara is a 76-year-old male who presented to the emergency department after experiencing 4 episodes of chest pressure and pain while walking on a local walking trail on November 13.? The patient is active and apparently walks 50-100 miles a month.? He has had a history of having undergone a stress after a left bundle branch block was seen on routine EKG.? He does state that he has had some left-sided arm pain as well.? His pain is reproducible upon deep palpation of his chest, it worsens.? He denies shortness of breath, nausea or vomiting, abdominal pain, dysuria, diarrhea or constipation.? He does endorse having gout in in the toes of both of his feet. In the last day or so he did have some gastric upset after having eaten armstrong chops that they made at home without trimming off the fat.? His family history is notable for his father having of a myocardial infarction at the age of 57. Chest x-ray ordered in the emergency department indicated mild pulmonary vascular congestion, no focal infiltrate pleural effusion or pneumothorax.? Patient is afebrile, blood pressure 156/79, heart rate 68, respiratory rate 16, oxygen saturation 98% on room air, he weighs 74.8 kg with a BMI of 26.6.? CBC is unremarkable, creatinine is 1.37 which is new, his EGFR is 50.8, hemoglobin A1c 5.1, magnesium 2.0, liver enzymes within normal limits, proBNP is 176 slightly over normal, and COVID-19 PCR is negative. Discharge Providers Provider Date of admission: 11/13/21 21:10 Discharge Date: 11/15/21 Primary care physician: David Ramirez MD Discharge provider: Kenyetta Iraheta MD Summary Hospital Course Discharge Diagnosis: 1. Chest pain, unknown etiology, cardiac enzymes negative, EKG negative except for left bundle-branch block, nuclear medicine stress test normal 2. Hypertension 3. Hyperlipidemia Hospital Course: Patient was admitted to the hospital for evaluation of chest pain. Serial cardiac enzymes are negative. Twelve lead EKG was negative. Patient had no further pain in the hospital. He underwent nuclear medicine stress testing, this was negative. Patient was deemed appropriate for discharge and arrangement s were made for him to discharge home. Status at Discharge Cognitive/behavioral status at discharge: oriented Functional status at discharge: independent ambulation Overall status at discharge: patient is back to baseline Exam Vital Signs (past 8 hours): - 11/15/21 09:40 11/15/21 09:41 11/15/21 09:42 Temperature 98.7 F Pulse Rate 63 63 Respiratory Rate 15 Blood Pressure 123/71 123/71 Pulse Oximetry 95 95 11/15/21 14:03 Temperature 97.9 F Pulse Rate 68 Respiratory Rate 16 Blood Pressure 135/78 Pulse Oximetry 96 Oxygen Delivery Method Room Air Oxygen Flow Rate 0 Narrative Exam Narrative: Pleasant male resting comfortably in no obvious distress Resp Other: Lungs clear to auscultation Cardio Other: Cardiac exam: Regular rate and rhythm normal S1-S2 a 2/6 systolic ejection murmur GI Other: Abdomen soft and nontender Extrem Other: Extremity no edema Objective Labs Result Diagrams: 11/14/21 07:20 11/14/21 07:20 [facility] Medical History (Updated 11/14/21 @ 03:01 by ANTONIO Rowan) Benign tumor of pituitary gland Essential hypertension GERD (gastroesophageal reflux disease) Hyperlipidemia Hyperuricemia Tic disorder Family History (Updated 11/14/21 @ 02:58 by ANTONIO Rowan) Father Hypertension Mother CVA (cerebral vascular accident) Sister Breast cancer Malignant melanoma Brother Diabetes mellitus Other Myocardial infarction Social History household members: spouse Smoking Status: Former smoker alcohol intake: current Discharge Assessment & Plan Assessment and Plan Assessment: Chest pain, suspect noncardiac Hypertension Hyperlipidemia Plan of Treatment: Aspirin daily Follow-up with Dr. Ramirez Discharge Plan Discharge Plan Patient Disposition: Home Discharge orders & Medications Prescriptions: New aspirin 81 mg Tablet,Delayed Release (Dr/Ec) 81 mg PO DAILY Qty: 30 0RF Continued atorvastatin 10 mg Tablet 5 mg PO BEDTIME 0RF lisinopril 40 mg Tablet 20 mg PO DAILY 0RF Follow up/Referrals: David Ramirez MD [Primary Care Provider] - Diet/Activity/Treatments Diet: Low-sodium Discharge Data Primary Care Provider: David Ramirez Attending Provider: Amy Clark VTE Deep Vein Thrombosis/Pulmonary Embolism Present on Admission: No
== END 2021-11-15 17:15 | disposition home or self-care (01) ==
LOC: ED 20:58 → AC 21:11
PROVIDERS: Emergency Medicine; Admitting Provider Nurse Practitioner Family; Emergency Provider Emergency Medicine; Family Provider Family Medicine Geriatric Medicine; PCP Internal Medicine; Visit Provider Nurse Practitioner Family
DX: I44.7 Left bundle-branch block, unspecified (principal); R07.89 Other chest pain; I10 Essential (primary) hypertension; K21.9 Gastro-esophageal reflux disease without esophagitis; E78.5 Hyperlipidemia, unspecified; Z20.822 Contact with and (suspected) exposure to COVID-19
CPT/HCPCS: 36415; 71045; 78452; 80048; 80053; 80061; 80076; 82550; 83036; 83690; 83735; 83880; 84443; 84484; 85025; 85610; 85730; 87635; 93005; 93017; 93306; 94760; 96372; 99284; C9803; G0378; A9502; J1650; J2785

== ENCOUNTER → 2022-02-28 10:34 | Outpatient (CLI) | payer MEDICARE, OTHER, SELFPAY ==
[2021-11-13 22:22] VITALS: BMI 26.6
--- NOTE | 2022-02-28 10:37 | DI.RAD.S_ITS ---
PROCEDURE: XR FOOT RT MIN 3V INDICATIONS: Right heel pain TECHNIQUE: 3 views of the foot were acquired. COMPARISON: None. FINDINGS: Bones: No fractures or dislocations. No suspicious bony lesions. Tiny calcaneal spur present. Soft tissues: No tibiotalar joint effusion. Achilles tendon appears normal. 5 mm tissue stippled calcification projecting over the dorsal hindfoot noted laterally. IMPRESSION: 1. Small calcaneal spur. No lytic or blastic osseous lesion. 2. Small focal lateral soft tissue calcification may be related to prior trauma or infection Approved by: Jaguar Ospina M.D. on 02/28/2022 at 12:00
== END ==
PROVIDERS: Family Provider Family Medicine Geriatric Medicine; PCP Internal Medicine; Referring Provider Nurse Practitioner Family; Visit Provider Nurse Practitioner Family
DX: M77.31 Calcaneal spur, right foot (principal); M79.671 Pain in right foot
CPT/HCPCS: 73630

== ENCOUNTER → 2023-01-21 12:42 | Outpatient (CLI) | payer MEDICARE, OTHER, SELFPAY ==
[2021-11-13 22:22] VITALS: BMI 26.6
[2023-01-21 13:28] LABS: Add Manual Diff / Slide Review NO; Basophils Absolute Auto 0 /uL (0-100); Basophils Percent Auto 0.3 % (0-2); Eosinophils Absolute Auto 0 /uL (0-450); Eosinophils Percent Auto 0.7 % (2-4); Hematocrit 42.2 % (41-53); Hemoglobin 14.8 g/dL (13.5-17.5); Lymphocytes Absolute Auto 1800 /uL (1100-4500); Lymphocytes Percent Auto 32.5 % (25-40); Mean Corpuscular HGB Conc 35.1 % (30-36); Mean Corpuscular Hemoglobin 32.3 PG (26-34); Mean Corpuscular Volume 92.2 fL (80-100); Monocytes Absolute Auto 400 /uL (0-900); Monocytes Percent Auto 8.1 % (3-14); Neutrophils Absolute Auto 3200 /uL (1500-7000); Neutrophils Percent Auto 58.4 % (50-75); Platelet Count 213 X10^3/uL (150-400); Red Blood Cell Count 4.58 X10^6/uL (4.5-5.9); Red Cell Distribution Width 12.7 % (11.6-14.8); White Blood Cell Count 5.4 X10^3/uL (4.5-11.0)
[2023-01-21 13:45] LABS: Alanine Aminotransferase 28 IU/L (<50); Albumin 4.2 g/dL (3.5-5.0); Albumin Globulin Ratio 1.4 (1.0-2.8); Alkaline Phosphatase 68 U/L (38-126); Aspartate Aminotransferase 33 IU/L (17-59); BUN Creatinine Ratio 13.4 (6-22); Bilirubin Total 0.9 mg/dL (0.2-1.3); Blood Urea Nitrogen 18 mg/dL (9-20); Calcium 9.6 mg/dL (8.4-10.2); Carbon Dioxide 28 mmol/L (22-32); Chloride 102 mmol/L (98-107); Estimated Glomerular Filt Rate 55 mL/min (>60); Globulin 2.9 g/dL (1.7-4.1); Glucose 91 mg/dL (80-110); HEMOLYSIS < 15 (0-50); Potassium 4.6 mmol/L (3.4-5.1); Sodium 137 mmol/L (137-145); Total Protein 7.1 g/dL (6.3-8.2)
[2023-01-21 15:00] LABS: Thyroid Stimulating Hormone 1.08 uIU/mL (0.47-4.68)
== END ==
PROVIDERS: Family Provider Family Medicine Geriatric Medicine; PCP Physician Assistant Medical; Referring Provider Internal Medicine Gastroenterology; Visit Provider Internal Medicine Gastroenterology
DX: R10.32 Left lower quadrant pain (principal); R19.4 Change in bowel habit; K21.9 Gastro-esophageal reflux disease without esophagitis
CPT/HCPCS: 36415; 80053; 84443; 85025

== ENCOUNTER 2023-02-05 10:21 | Day surgery (SDC) | payer MEDICARE, OTHER, SELFPAY ==
[2021-11-13 22:22] VITALS: BMI 26.6
--- NOTE | 2023-02-05 | PATH_ITS ---
[facility] Accession Number: [id number] No. of containers..01 Tissue . 01 Material submitted: . colon - HEPATIC POLYP BIOPSY . 01 Diagnosis: Hepatic Flexure Polyp, Biopsy: Tubular adenoma. [facility] 02/12/2023 1159 Local . 01 Electronically signed: . Stephen Delgado MD, PhD, Pathologist NPI- [id number] . 01 Gross description: . HEPATIC POLYP BIOPSY: Received in formalin is 1 fragment(s) of wright, soft tissue measuring 0.3 x 0.2 x 0.2 cm submitted entirely in 1 cassette(s) /CARIN 02/06/2023 2326 Local . 01 Pathologist provided ICD-10: D12.3 . 01 CPT . 276730 Specimen Comment: A courtesy copy of this report has been sent to [phone] Performed at: 01 [facility] [address] [place] [address], [place], [place] [id number] MD Jin Goldberg MD Phone: [phone]
[2023-02-05 10:43] VITALS: BP 107/71; PULSE 83; RESP 19; TEMP 36.1; O2SAT 96; BMI 25.7
[2023-02-05] MEDS: LACTATED RINGERS 1,000 ML 42 ML IV (11:04)
--- NOTE | 2023-02-05 11:17 | PM.PREOP ---
Pre-operative Note COVID-19 COVID-19 status: Negative Interval Note History & Physical reviewed/Exam performed by Physician: Yes Changes to H&P: No ASA Class (for procedural sedation): II
--- NOTE | 2023-02-05 11:17 | PM.OP.COLON ---
Operative Date/Time/Diagnoses Date of procedure: 02/05/23 Pre-op diagnosis: See indication and findings Procedure & Clinicians Study performed: Colonoscopy Indications: Screening with new onset left-sided abdominal pain and constipation Procedure Notes Procedure in detail: After informed consent was obtained the patient was placed in left lateral decubitus position. The video colonoscope was introduced the rectum and slowly advanced cecum. On slow withdrawal mucosa was carefully examined. The scope was removed. The patient tolerated procedure well. Preparation was good. Blood loss none Complications none Sedation mac Findings 1. Diminutive polyp in the hepatic flexure cold biopsy removed completely 2. Moderate sigmoid diverticulosis 3. Otherwise negative colonoscopy to cecum We will merely await pathology results to help determine follow-up. Given his age I might not suggest that Mr. Kamara have follow-up colonoscopy. I do not see any reason for his new onset abdominal pain and constipation. I would suggest he remain on some regimen to have bowel movements daily in which case I would expect his abdominal discomfort to decrease.
[2023-02-05 12:17] VITALS: BP 84/58; PULSE 73; RESP 12; TEMP 36.8; O2SAT 95
[2023-02-05 12:21] VITALS: BP 84/56; PULSE 76; RESP 14; TEMP 36.8; O2SAT 96
[2023-02-05 12:28] VITALS: BP 98/74; PULSE 71; RESP 13; TEMP 36.2; O2SAT 96
[2023-02-05 12:33] VITALS: BP 104/74; PULSE 75; RESP 14; TEMP 36.7; O2SAT 97
[2023-02-05 12:38] VITALS: BP 112/77; PULSE 63; RESP 15; TEMP 36.7; O2SAT 98
== END 2023-02-05 10:25 | disposition home or self-care (01) ==
PROVIDERS: Family Provider Family Medicine Geriatric Medicine; PCP Physician Assistant Medical; Referring Provider Internal Medicine Gastroenterology; Visit Provider Internal Medicine Gastroenterology
PROC: 0DJD8ZZ Inspection of Lower Intestinal Tract, Via Natural or Artificial Opening Endoscopic (ICD-10-PCS; CPT 45378; principal; 2023-02-05 11:30)
DX: R10.9 Unspecified abdominal pain (principal); K59.00 Constipation, unspecified; K31.9 Disease of stomach and duodenum, unspecified; K57.30 Diverticulosis of large intestine without perforation or abscess without bleeding; D12.3 Benign neoplasm of transverse colon
CPT/HCPCS: 45380; J2704